=== PATIENT | female | born 1965 | race Caucasian/White ===

== ENCOUNTER 2019-09-03 14:34 | Emergency (ER) | payer OTHER ==
[~2019-09-03] VITALS: Ht 170.2 cm; Wt 68.0 kg
[2019-09-03] MEDS ORDERED: IBUP800 PO (15:41)
[2019-09-03] MEDS ORDERED: Robaxin-750750 MG PO (15:41)
== END 2019-09-03 16:00 | disposition home or self-care (01) ==
LOC: ER 14:34
DX: M54.2 Cervicalgia (principal); M54.5 Low back pain; V89.2XXA Person injured in unspecified motor-vehicle accident, traffic, initial encounter
CPT/HCPCS: 99283